=== PATIENT | female | born 1950 | race Caucasian/White ===

== ENCOUNTER 2017-03-10 09:43 | Emergency (ER) | payer MEDICARE, OTHER ==
[~2017-03-10] VITALS: Ht 167.6 cm; Wt 90.7 kg
[~2017-03-10 09:43] MED LIST: AMBEREN; ARIXTRA SUBQ; ASPIR 8181 MG PO; ASPIRIN EC325 M1 PO; CIPROFLOXACIN500 M1 PO; COLACE100 MG PO; FISHOIL; GLUCOPHAGE500 MG PO; HUMALOG100 UNIT/1 SUBQ; HYDROCODONE-AP1 EAC6 PO; LISINOPRIL5 MG PO; MEDROLDOSEPACK PO; MELOXICAM7.5 MG PO; ONDANSETRON HCL4 M2 PO; PERCOCET 5-3251 EACH PO; PREDNISONE 10 M10 MG PO; ROXICODONE5 MG PO; SYNTHROID137 MC1 PO
[2017-03-10] MEDS ORDERED: ELIQUIS5 MG PO (09:58)
[2017-03-10] MEDS ORDERED: CARTIA XT120 M1 PO (09:59)
[2017-03-10] MEDS ORDERED: TURMERIC500 M2 PO (09:59)
[2017-03-10] MEDS ORDERED: VITAMIN D1000 UNI1 PO (10:00)
[2017-03-10 11:50] VITALS: BP 141/77
== END 2017-03-10 11:50 | disposition home or self-care (01) ==
LOC: M.ERS 09:43
DX: S13.4XXA Sprain of ligaments of cervical spine, initial encounter (principal); S50.02XA Contusion of left elbow, initial encounter; S09.90XA Unspecified injury of head, initial encounter; E11.9 Type 2 diabetes mellitus without complications; Z98.890 Other specified postprocedural states; Z86.39 Personal history of other endocrine, nutritional and metabolic disease; Z88.1 Allergy status to other antibiotic agents; Z79.4 Long term (current) use of insulin; W10.8XXA Fall (on) (from) other stairs and steps, initial encounter; Y93.01 Activity, walking, marching and hiking; Y92.89 Other specified places as the place of occurrence of the external cause; Y99.8 Other external cause status

== ENCOUNTER 2017-09-19 23:29 | Observation (INO) | payer MEDICARE, OTHER ==
[~2017-09-19] VITALS: Ht 15.2 cm; Wt 90.7 kg
[~2017-09-19 23:29] MED LIST changes: +CARTIA XT120 M1 PO; +ELIQUIS5 MG PO; +TURMERIC500 M2 PO; +VITAMIN D1000 UNI1 PO
[2017-09-19 23:32] VITALS: BP 166/69
[2017-09-19] MEDS ORDERED: XARELTO20 MG PO (23:43)
[2017-09-20 02:51] LABS: HEMATOCRIT 39.4 % (37.0-47.0); MCH 28.5 pg (26.0-34.0); MCV 86.4 fL (80.0-100.0); MPV 7.7 fl. (7.2-11.1); RBC 4.57 mil/uL (4.20-5.00); RDW-CV 14.2 % (10.5-14.5); WBC 9.3 thou/uL (4.0-11.0)
[2017-09-20 02:57] LABS: ANION GAP 2 mmol/L (7-16); BUN 14 mg/dL (7-18); CALCIUM 9.2 mg/dL (8.5-10.1); CHLORIDE 101 mmol/L (98-107); CO2 31 mmol/L (21-32); CREATININE 0.8 mg/dL (0.6-1.3); GLUCOSE 330 mg/dL (70-99); POTASSIUM 4.6 mmol/L (3.5-5.1); SODIUM 134 mmol/L (136-145)
[2017-09-20 03:05] LABS: TROPONIN-I LEVEL <0.06 ng/mL (<0.06)
[2017-09-20 03:35] VITALS: BP 138/68
[2017-09-20 04:00] VITALS: BP 134/59
--- NOTE | 2017-09-20 05:24 | NUR ---
PT ARRIVED ON ORTHO FROM ER AT 0400 PT ALERT AND ORIENTED X4 VS AND ASSESSMENT STABLE.PT ORIENTED TO ROOM POSITIVE CMS CHECKS TO LLE. PT STATED SHE CHECKED HER BLOOD GLUCOSE AT 027 BG 353 PT STATED SHE BOLUSED HERSELF WITH WITH 5.8 OF UNITS OF HUMALOG. I CHECKED BG WHEN SHE ARRIVED BG 320. PT DENIES ANY COMPLAINTS. WILL CONTINUE PLAN OF CARE.
[2017-09-20 07:30] VITALS: BP 120/66
[2017-09-20] MEDS ORDERED: COLACE100 MG PO (07:59)
[2017-09-20] MEDS ORDERED: XARELTO20 MG PO (07:59)
--- NOTE | 2017-09-20 10:51 | EKG ---
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[facility] : 1950 Requested By: Isreal Low Order Number: [id number] MD: Asael Russell Measurements Intervals [place] Rate: 92 P: 39 MS: 176 QRS: 26 QRSD: 107 T: 35 QT: 369 QTc: 457 Interpretive Statements Sinus rhythm Probable left atrial enlargement septal infarct, age indeterminate Baseline wander in lead(s) V5 Compared to ECG 02/13/2017 22:45:08 no change Electronically Signed On 09-20-2017 10:51:38 CDT by Asael Russell [email or web address] <ELECTRONICALLY SIGNED> By: Asael Russell MD, [facility] 09/20/17 1051 0329 0329 Asael Russell MD, [facility] /EPI
--- NOTE | 2017-09-20 15:22 | NUR ---
RECEIVED CONSULT FOR POSSIBLE REHAB ADMISSION. CONSULT ACKNOWLDEGED BY COMPLIANCE LEAD AND DR. ABBASI. PATIENT ADMITTED AFTER FALL DOWN STAIRS HITTING HER HEAD AND SUSTAINING A LEFT TIBIAL PLATEAU FX. PATIENT WAS EVALUATED BY PT/OT AND FOUND TO HAVE REHAB NEEDS. SPOKE WITH PATIENT AND SPOUSE WHO ARE AGREEABLE TO ACUTE REHAB AND ACKNOWLEGE UNDERSTANDING OF QUALIFICATIONS AND REQUIREMENTS. NOTIFIED NURSE AND ALVIN FOX OF ACCEPTANCE TO REHAB. WILL PLAN TO ADMIT PATIENT TO ACUTE REHAB TODAY. THANK YOU FOR THIS CONSULT.
--- NOTE | 2017-09-20 15:52 | NUR ---
SPOKE WITH PT. SHE WAS ALERT AND ORIENTED. SHE WILL BE GOING TO OUR INPT.REHAB TODAY. SHE IS VERY HAPPY AND STATED MORE AT EASE SINCE SHE KNOWS SHE CAN GO UP TO REHAB. SHE STATED SHE LIVES WITH HER . HE IS BRINGING HER UP SOME THINGS TO THE HOSPITAL SHORTLY. SHE HAD A KNEE REPLACEMENT SEVERAL YEARS AGO. HAS A WALKER AT HOME. SHE WAS TOTALLY INDEPENDENT PRIOR TO HER FALL. DISCUSSED BRIEFLY,REHAB UNIT ROUTINE.
[2017-09-20] MEDS ORDERED: NORCO 5-325 TA1 EACH PO (16:21)
[2017-09-20 16:49] VITALS: BP 120/66
--- NOTE | 2017-09-20 18:19 | NUR ---
PATIENT LEFT UNIT AT 1730. ALERT AND ORIENTED X4. UP WITH 1-2 WITH WALKER AND GAIT BELT. PAIN BEING MANAGED WITH PO PAIN MEDICATION. NAUSEA BEING MANAGED WITH IV PAIN MEDICATION. ALL PERSONAL ITEMS LEFT WITH PATIENT. DISCHARGE ORDERS SENT TO REHAB. VSS ON ROOM AIR. HOURLY ROUNDS HAVE BEEN MAINTAINED THROUGHOUT SHIFT. TRANSFERRED TO ROOM 323. REPORT GIVEN TO CHRISTINA GOMEZ.
[2017-09-20 18:40] VITALS: BP 120/66
--- NOTE | 2017-09-20 20:06 | NUR ---
KEV GOMEZ HAS REVIEWED AND AGREES WITH STUDENT NURSES CHARTING.
--- NOTE | 2017-10-03 15:07 | NUR ---
PT ACCOUNT MADE OBSERVATION. G-CODE THIS DATE: 09/20/17 CURRENT G8987 SELF CARE- CM 80% GOAL G8988 SELF CARE- CI 1-19%
== END 2017-09-20 17:30 ==
LOC: M.ERS 23:29 → M.ORTHSURG 09-20 02:34 → M.TBA-ER 09-20 02:34 → M.ORTHSURG 09-20 02:34
PROVIDERS: Emergency Medicine Emergency Medical Services; ADMIT Internal Medicine
DX: S82.142A Displaced bicondylar fracture of left tibia, initial encounter for closed fracture (principal); R53.81 Other malaise; E10.8 Type 1 diabetes mellitus with unspecified complications; I48.91 Unspecified atrial fibrillation; E05.00 Thyrotoxicosis with diffuse goiter without thyrotoxic crisis or storm; W10.8XXA Fall (on) (from) other stairs and steps, initial encounter; Y93.89 Activity, other specified; Y92.89 Other specified places as the place of occurrence of the external cause; Y99.8 Other external cause status; Z98.890 Other specified postprocedural states

== ENCOUNTER 2017-09-20 16:07 | Inpatient (IN) | payer MEDICARE, OTHER ==
[~2017-09-20] VITALS: Ht 167.6 cm; Wt 93.4 kg
--- NOTE | ~2017-09-20 | H ---
[address] [address] HISTORY AND PHYSICAL Name: ALYSON MCINTYRE Room: [address] IN M.R.#: [id number] Admission: 09/20/17 Attend Phys: Elva Owens DO Discharge: 10/03/17 Date of : 48 Report #: [id number] THIS REPORT FOR: //name// CC: Jaime Owens DATE OF SERVICE: 09/20/2017 ADDENDUM ASSESSMENT: 1. Acute traumatic left tibial plateau fracture. 2. Debility with alterations in activities of daily living. 3. Intractable pain. 4. Diabetes type 1, on insulin. 5. Atrial fibrillation, on Xarelto. 6. Nausea. PLAN: 1. Admission to inpatient rehabilitation. 2. PT, OT, speech, language, case management, nursing and HIMS to make evaluations and recommendations. 3. Medication reconciliation was completed. 4. Plan of care is pending and we will team her weekly. 5. ADA diet and laboratories on day after admission. By: [id number] Owens DO /nt
[~2017-09-20 16:07] MED LIST changes: +XARELTO20 MG PO
[2017-09-20] MEDS ORDERED: NORCO 5-325 TA1 EACH PO (16:21)
--- NOTE | 2017-09-20 18:55 | NUR ---
TRANSFERRED FROM [facility] THIS EVENING AFTER SUPPER, A/O, DISCOMFORT MINIMALLY MANAGED WITH ORAL MEDICATION. ORIENTED TO ROOM, CARE PLAN REVIEWED WITH PATIENT AND RE: DISCHARGE GOALS AND DISCHARGE PLAN, BOTH COMMUNICATE UNDERSTANDING, DENY QUESTIONS AT THIS TIME, PERCOCET 5/325 GIVEN @ 1830 FOR PAIN CONTROL, CALL LIGHT NI BRYAN.
[2017-09-20 19:35] VITALS: BP 155/82
--- NOTE | 2017-09-20 21:40 | NUR ---
REHAB ADMISSION TOOL ADMISSION COMPLETED. PATIENT STATES NO RELIEF OBTAINED FROM PERCOCET GIVEN ON DAY SHIFT FOR COMPLAINT OF LEFT KNEE PAIN. GAVE TWO VICODINS AT 2105 FOR COMPLAINT OF LEFT KNEE PAIN RATED "10" WITH MINIMAL RELIEF. PATIENT STATES PAIN DECREASED TO A "9". LEFT KNEE BRACE INTACT. PLACED PILLOW UNDER LEFT LEG BUT PATIENT REMOVED THE PILLOW AFTER ABOUT 20 MINUTES STATING IT WAS TOO UNCOMFORTABLE. PATIENT HAS AN INSULIN PUMP THAT CALCULATES HOW MUCH INSULIN IS NEEDED. TONIGHT'S ACCUCHECK WAS 203 AND PATIENT'S INSULIN PUMP DELIVERED 1.9 UNITS OF HUMALOG INSULIN. PATIENT HAD A FEMALE VISITOR AT SHIFT CHANGE. PATIENT STATES THEY HAVE BEEN FRIENDS FOR 40 YEARS. TOOK MEDICATIONS WHOLE ONE AT A TIME WITH WATER.
[2017-09-21 04:28] LABS: HEMOGLOBIN 12.6 gm/dL (12.0-15.0); MCHC 32.2 g/dL (28.0-37.0); MCV 87.1 fL (80.0-100.0); MPV 8.3 fl. (7.2-11.1); RBC 4.48 mil/uL (4.20-5.00); RDW-CV 14.4 % (10.5-14.5)
[2017-09-21 04:45] LABS: CALCIUM 9.3 mg/dL (8.5-10.1); CREATININE 0.7 mg/dL (0.6-1.3); POTASSIUM 4.3 mmol/L (3.5-5.1)
--- NOTE | 2017-09-21 05:06 | NUR ---
PAIN MEDS GIVEN AT 0330 FOR C/O LEFT KNEE PAIN RATED "8" WITH RELIEF. HOURLY ROUNDING IN PROGRESS.
[2017-09-21 08:00] VITALS: BP 138/69
--- NOTE | 2017-09-21 18:36 | NUR ---
AM ASSESSMENT AND VITAL SIGNS COMPLETED DOCUMENTED. HINGED BRACE HAS BEEN IN PLACE TO LEFT LEG ALL DAY, NON WEIGHT BEARING STATUS CONTINUES. PT WAS VERY NAUSEATED THIS AM AND THERAPY WAS DELAYED UNTIL MID MORNING. PT HAS DECLINED PAIN MEDICATION TODAY. PT IS ABLE TO STAND PIVOT FOR TRANSFERS. HOURLY ROUNDING AND FALL PRECAUTIONS IN PLACE.
--- NOTE | 2017-09-21 19:15 | NUR ---
PT HAS AN INSULIN PUMP AND SHE HAS BEEN MANAGING HER BLOOD GLUCOSE HERSELF
[2017-09-21 19:30] VITALS: BP 119/71
[2017-09-21 19:50] VITALS: BP 125/61
--- NOTE | 2017-09-21 19:50 | NUR ---
RESTING QUIETLY IN BED. DENIES DISCOMFORT. TOOK MEDS WHOLE WITH WATER. LEFT LEG BRACE IN PLACE.
--- NOTE | 2017-09-22 06:06 | NUR ---
RESTED SOUNDLY ALL NIGHT. NO COMPLAINTS VOICED. HOURLY ROUNDING IN PROGRESS.
[2017-09-22 08:00] VITALS: BP 135/55
--- NOTE | 2017-09-22 18:15 | NUR ---
AM ASSESSMENT AND VITAL SIGNS COMPLETED DOCUMENTED. PT CLEANED UP AT THE SINK THIS AM, ABLE TO DO HER OWN GROOMING WITH SET UP. LEFT LEG BRACE REMAINS IN PLACE, NO C/O PAIN OR NAUSEA THIS SHIFT. PT EATS MEALS IN THE DINING ROOM AND INTERACTS WELL WITH THE OTHER PATIENTS. PT CONTINUES TO MANAGE HER BLOOD GLUCOSE SHE WOULD AT HOME. FALL PRECAUTIONS AND HOURLY ROUNDING OBSERVED.
[2017-09-22 21:26] VITALS: BP 144/73
--- NOTE | 2017-09-23 01:17 | NUR ---
ASSUMED CARE @ 1914-09/22-SATURDAY.SITS IN RECLINER W/ LE'S UP.BRACE IN PLACE LEFT LE.READING BOOK.BRP PER W/C W/PIVOT TRANSFER.NWB LEFT LE OBSERVED DURING TRANSFERS.FEARFUL DURING TRANSFERS.MAX ASSIST W/ CLOTHING ADJUSTMENTS.HOB UP. WANTS ONLY LEFT LE UP ON A PILLOW.EDEMA-+1 PITTING LEFT ANKLE & LEFT FOOT. WANTS ONLY SIDERAILS X2 UP.BED ALARM PUT ON @ 2119.PER PATIENT-TURNS SELF @ NIGHT & IF NEEDED ASSIST-WILL CALL.ON HOURLY ROUNDS.
--- NOTE | 2017-09-23 05:27 | NUR ---
SLEPT LATE & SLEEPING SINCE 2299.BRP PER W/C X1 BEFORE HS @ 2114.THEN,USED BSC W/ ASSIST X2.TOOK ONE PACKAGE LUCINDA CRACKERS HS SNACKS.HAS INSULIN PUMP. REMAINED IN RECLINER W/ LE'S UP @ 0535-SLEEPING.
[2017-09-23 08:00] VITALS: BP 135/69
--- NOTE | 2017-09-23 13:13 | NUR ---
Nutrition: Pt admitted to Rehab s/p fall, Lt tibial FX. PMHx: IDDM, whiplash injuries, afib. LLE pitting edema. 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 RX: insulin, xarelto. +BM. Wt: 200#. Eating 75-100% of CHO count diet. BG 161-184. No acute nutrition concerns at this time. Will follow weekly.
--- NOTE | 2017-09-23 17:31 | NUR ---
SW met with pt to complete initial assessment, introduce self, and SW role on rehab unit. Pt alert, oriented, pleasant. Pt lives at home with her and was independent prior to her fall. Pt has a RW and is in the process of getting a BSC. Pt has 3 steps to enter her home and her goal is to master at least 3 steps safely prior to dc. SW to continue to follow to assist with safe dc planning.
--- NOTE | 2017-09-23 18:33 | NUR ---
PT HAS PARTICIPATED WITH THERAPIES AND CALLS FOR ASSIST NEEDED.PT REMAINS NWB TO LT LEG WITH IMMOBILIZER ON. PT CONTINENT OF B+B AND CALLS FOR ASSIST TO BSC.PLAIN TYLENOL GIVEN WITH GOOD EFFECT THIS EVENING.PT EATS MEALS IN DINNING ROOM. PT CONTINUES TO PROGRESS TOWARDS GOALS AND HOURLY ROUNDING CONTINUES.
[2017-09-23 19:50] VITALS: BP 123/64
--- NOTE | 2017-09-24 02:12 | NUR ---
ASSUMED CARE @ 1929-09/23-SATURDAY.SITS IN RECLINER W/ LE'S UP.BRACE IN PLACE LEFT LE.VISITING W/ A FRIEND @ THIS TIME.ASSISTED TO BED BY TAR HEATER @ 2119.HOB UP.WANTS ONLY LEFT LE UP ON A PILLOW.BED ALARM PUT ON @ 2119.HAS INSULIN PUMP. EDEMA-+1 PITTING LEFT ANKLE & LEFT FOOT.NWB LEFT LE DURING ALL TRANSFERS.ON HOURLY ROUNDS.TAR HEATER DOING ODD HOUR ROUNDS.
--- NOTE | 2017-09-24 05:45 | NUR ---
SLEEPING SINCE 2199.TURNS SELF @ NIGHT.SEE POSITION CHANGE CHARTING.TOOK ALL PEACHES HS SNACK.BRP PER W/C X1 BEFORE HS @ 194.USED BSC X3.URINE ACCIDENT W/ DRIBBLING X1.WANTS TO SIT IN RECLINER @ 0525 W/LE'S UP & ASSISTED BY BUN PANNER.
[2017-09-24 08:22] VITALS: BP 144/80
--- NOTE | 2017-09-24 12:47 | NUR ---
SW called and spoke with Gema's Kyrie in preparation for team conference tomorrow. Pt did not have any specific questions just is hopeful pt will be able to master stairs in order to return home safely. SW to continue to follow to assist with safe dc planning.
--- NOTE | 2017-09-24 16:52 | NUR ---
PT HAS PARTICIPATED WITH THERAPIES AND CONTINUES TO WEAR IMMOBILIZER TO LT LEG AND REMAINS NWD.PT TRANSFERRS WITH WALKER,GAITBELT AND MIN ASSIST OF 1. PT CAN BE MOBILE IN W/C ON UNIT. PT TOLERATES MEALS AND EATS IN DINNINGROOM. PT CONTINENT OF B+B AND CALLS FOR ASSIST TO BSC. PT REMAINS ALERT AND ORIENTATED AND PROGRESSES TOWARDS GOALS. HOURLY ROUNDING CONTINUES.
[2017-09-24 20:30] VITALS: BP 125/65
--- NOTE | 2017-09-25 02:06 | NUR ---
ASSUMED CARE @ 1929-/-.SITS IN RECLINER W/ LE'S UP.BRACE IN PLACE LEFT LE.ACCUCHECK DONE BY STAVE BLOCK ROLLER @ .PATIENT ONLY TOOK 60 ML ORANGE JUICE & ONE SMALL CONTAINER PEANUT BUTTER HS SNACKS @ 2029.LATER,PATIENT DID OWN ACCUCHECK @ .HAS INSULIN PUMP.NWB LEFT LE OBSERVED DURING ALL TRANSFERS & TOILETING.HOB UP IN BED.WANTS ONLY LEFT LE UP ON A PILLOW.BED ALARM PUT ON @ 2134.EDEMA-+1 PITTING LEFT ANKLE & LEFT FOOT.TURNS SELF @ NIGHT.SEE POSITION CHANGE CHARTING.ON HOURLY ROUNDS.STAVE BLOCK ROLLER DOING ODD HOUR ROUNDS.
--- NOTE | 2017-09-25 05:22 | NUR ---
SLEEPING SINCE -SAT.BRP X1 W/ DICTAPHONE MECHANIC ASSISTING @ 2119.AMBULATED TO BATHROOM W/ GB & WALKER BUT USED W/C TO GO BACK TO BED.USED BSC X1 ONLY.TOOK ONLY 60 ML ORANGE JUICE & ONE SMALL PACKET PEANUT BUTTER HS SNACKS.
[2017-09-25 08:00] VITALS: BP 137/83
--- NOTE | 2017-09-25 15:00 | NUR ---
KELLY and Dr Owens met with pt to review team conference summary. Plan for pt to continue therapies on rehab unit for another week with team to reteam on next Saturday and then pt to dc home on next 10/02. Pt in agreement with plan. SW to continue to follow to assist with safe dc planning.
--- NOTE | 2017-09-25 17:45 | NUR ---
ASSUMED CARE AT 0730 PATIENT ALERT/ORIENTED, TYLENOL GIVEN FOR PAIN X1 THIS SHIFT WITH GOOD RESULTS, UP WITH ASSIST OF ONE NWB TO LLE. SCOPOLOMINE D/DC DUE TO DRY MOUTH AT PATIENT REQUEST, HAS HAD NO C/O NAUSEA THIS SHIFT. PARTICIPATED IN ALL THERAPIES TODAY, TO DINING ROOM FOR MEALS, HOURLY ROUNDING COMPLETED. BED/CHAIR ALARMS IN PLACE CALL LIGHT IN REACH
[2017-09-25 20:26] VITALS: BP 145/80
--- NOTE | 2017-09-26 05:08 | NUR ---
ASSUMED PT CARE AT 1930. PT SITTING UP IN RECLINER WATCHING TELEVISION. PT IS NWB TO LLE, IMMOBILIZER TO LLE IN PLACE. PT UP TO BATHROOM TO VOID WITH GAIT BELT AND WALKER. PT HAS INSULIN PUMP AND PERFORMS OWN ACCUCHECKS AND INSULIN DOSING. TYLENOL AT HS FOR LEFT LEG PAIN. PT SLEPT WELL OVERNIGHT. CALL LIGHT AND FREQUENTLY USED ITEMS WITHIN REACH. HOURLY ROUNDING IN PROGRESS, WILL CONTINUE TO MONITOR.
[2017-09-26 07:54] VITALS: BP 141/71
--- NOTE | 2017-09-26 17:38 | NUR ---
ASSUMED CARE AT 0730 PATIENT ALERT/ORIENTED, TYLENOL GIVEN X2 FOR LEFT LEG PAIN. PARTICIPATED IN ALL THERAPIES TODAY, TO DINING ROOM FOR MEALS, BED/CHAIR ALARMS IN PLACE, CALL LIGHT IN REACH, HOURLY ROUNDING COMPLETED. PATIENT HAS INSULIN PUMP AND ADMINISTERS INSULIN NEEDED. IMMOBILIZER IN PLACE TO E.
[2017-09-26 20:10] VITALS: BP 114/68
--- NOTE | 2017-09-27 05:20 | NUR ---
ASSUMED PT CARE AT 1930. NURSING ASSESSMENT COMPLETED AT START OF SHIFT. PRN PAIN MEDICATION ADNISTERED X2 THIS SHIFT. SEE EMAR FOR DOCUMENTATION. MEDICATION EFFECTIVE. HOURLY ROUNDING COMPLETED, FALL PRECAUTIONS IN PLACE. CALL LIGHT WITHIN REACH.
[2017-09-27 08:01] VITALS: BP 139/77
--- NOTE | 2017-09-27 18:17 | NUR ---
PT CALLS FOR ASSIST TO BATHROOM AND EATS MEALS IN DINNINGROOM. PT REMAINS CONTINENT OF B+B. PT IS ALERT AND ORIENTATED. PT RESTS IN RECLINER WITH LEGS ELEVATED AND PROGRESSES WITH GOALS.
[2017-09-27 20:10] VITALS: BP 149/77
--- NOTE | 2017-09-28 05:07 | NUR ---
ASSUMED PT CARE AT 1930. PT ALERT AND ORIENTED X4, POLITE AND COOPERATIVE WITH CARES. PT SITTING UP IN RECLINER WITH LEGS ELEVATED. IMMOBILIZER IN PLACE TO LLE. PT C/O PAIN, TYLENOL GIVEN WITH HS MEDS FOR LEFT LEG PAIN. PT SLEPT WELL OVERNIGHT. PT HAS INSULIN PUMP, DOES OWN GLUCOSE CHECKS AND DOSING. UP TO BR TO VOID WITH SBA, GAIT BELT AND WALKER. BED ALARM ON FOR SAFETY. CALL LIGHT WITHIN REACH. HOURLY ROUNDING IN PROGRESS, WILL CONTINUE TO MONITOR.
[2017-09-28 08:12] VITALS: BP 137/75
--- NOTE | 2017-09-28 16:55 | NUR ---
ASSUMED CARE AT 0730 PATIENT ALERT/ORIENTED, NO COMPLAINTS OF PAIN THIS SHIFT, UP WITH ASSIST OF ONE AND WALKER, NWB TO LLE. PARTICIPATED IN ALL THERAPIES TODAY, TO DINING ROOM FOR MEALS, BED/CHAIR ALARMS IN PLACE, CALL LIGHT IN REACH, HOURLY ROUNDING COMPLETED.
[2017-09-28 20:13] VITALS: BP 138/85
--- NOTE | 2017-09-28 20:15 | NUR ---
SITTING UP IN WHEELCHAIR VISITING WITH . JUST FINISHED PLAYING [employer] IN THE DINING ROOM. TRANSFERRED FROM WHEELCHAIR TO BED WITH CGA, GAITBELT, WALKER, NON WEIGHT BEARING TO RIGHT LOWER EXTREMITY. HAS LEFT LEG IMMOBILIZER ON. LEFT PEDAL EDEMA OF 2+ NOTED. PILLOW PLACED UNDER LEFT LEG. TYLENOL GIVEN PER REQUEST FOR COMPLAINT OF LEFT LEG PAIN RATED "7". TOOK MEDICATIONS WHOLE WITH WATER.
--- NOTE | 2017-09-29 05:30 | NUR ---
UP X ONE DURING THE NIGHT TO THE BEDSIDE COMMODE TO VOID. NO FURTHER COMPLAINT OF PAIN. HOURLY ROUNDING IN PROGRESS.
[2017-09-29 08:19] VITALS: BP 138/78
--- NOTE | 2017-09-29 16:56 | NUR ---
ASSUMED CARE AT 0730 PATIENT ALERT/ORIENTED X4 UP WITH STANDBY ASSIST WALKER AND GAIT BELT, NO COMPLAINTS OF PAIN THIS SHIFT, NWB TO LLE WITH IMMOBILIZER IN PLACE, CALL LIGHT IN REACH, BED/CHAIR ALARMS IN PLACE, HOURLY ROUNDING COMPLETED. TO DINING ROOM FOR MEALS.
[2017-09-29 19:30] VITALS: BP 150/74
--- NOTE | 2017-09-29 20:15 | NUR ---
SITTING UP IN RECLINER. PRN TYLENOL GIVEN PER REQUEST FOR COMPLAINT OF MUSCLE SORENESS IN HER ARMS FROM EXERCISES IN THERAPY. TOOK MEDICATIONS WHOLE WITH WATER. LEFT IMMOBILIZER INTACT.
--- NOTE | 2017-09-30 04:53 | NUR ---
UP X ONE DURING THE NIGHT TO THE BEDSIDE COMMODE TO VOID. TRANSFERS WTIH SBA, GAITBELT, NON WEIGHT BEARING TO LEFT LOWER EXTREMITY. NO FURTHER COMPLAINT OF PAIN. HOURLY ROUNDING IN PROGRESS.
[2017-09-30 07:35] VITALS: BP 133/71
--- NOTE | 2017-09-30 15:51 | NUR ---
PT HAS PARTICIPATED WITH THERAPIES AND CALLS FOR ASSIST WITH TRANSFERRS. PT TRANSFERRS WITH MIN ASSIST OF 1,GAITBELT AND WALKER WITH LT LEG IMMOBILIZER ON.PT CALLS FOR ASSIST TO BATHROOM AND VOIDS WELL. PRN FOR PAIN GIVEN X2 TODAY WITH GOOD EFFECT. PT FEELING A LITTLE DOWN TODAY AND HOPEING TO GO HOME SOON. PT CONTINUES TO PROGRESS TOWARDS GOALS AND HOURLY ROUNDING CONTINUES.
[2017-09-30 19:30] VITALS: BP 149/73
--- NOTE | 2017-09-30 21:05 | NUR ---
SITTING UP IN BED WATCHING TV. PRN TYLENOL GIVEN FOR COMPLAINT OF SORENESS IN ARMS FROM THERAPY. TOOK MEDICATIONS WHOLE WITH WATER.
[2017-10-01 03:47] LABS: HEMATOCRIT 39.2 % (37.0-47.0); HEMOGLOBIN 12.8 gm/dL (12.0-15.0); MCH 27.9 pg (26.0-34.0); MCHC 32.5 g/dL (28.0-37.0); MCV 85.9 fL (80.0-100.0); MPV 8.1 fl. (7.2-11.1); RBC 4.57 mil/uL (4.20-5.00); WBC 6.5 thou/uL (4.0-11.0)
[2017-10-01 03:59] LABS: CALCIUM 9.4 mg/dL (8.5-10.1); CREATININE 0.6 mg/dL (0.6-1.3); MAGNESIUM 1.8 mg/dL (1.8-2.4); POTASSIUM 3.9 mmol/L (3.5-5.1)
--- NOTE | 2017-10-01 06:06 | NUR ---
UP X 3 DURING THE NIGHT TO THE BEDSIDE COMMODE TO VOID. NO FURTHER COMPLAINT OF PAIN. TRANSFERS WITH SBA, GAITBELT, WALKER, NON WEIGHT BEARING TO LEFT LOWER EXTREMITY. HOURLY ROUNDING IN PROGRESS.
[2017-10-01 08:22] VITALS: BP 183/77
--- NOTE | 2017-10-01 13:06 | NUR ---
SW spoke with pt about dc planning and whether or not pt had a RW at home already. Pt said that she actually did have a RW and did not need a walker ordered after all as she had mentioned to the OT that the one she had might not have had wheels and then she confirmed that it did have wheels. Pt said that her plans to bring up the RW today to have it set to the height that pt has been using on RW in hospital. SW discussed HH services and SW discussed team conference tomorrow with pt possibility to be able to dc . Pt is hopeful that will be the confirmed plan. Pt said she has borrowed a ramp and a wc if needed to get in to the home as she was nervous about climbing the steps to enter the home. SW called pt in preparation for team conference tomorrow and he answered but was unable to talk in depth at the moment and said he would call SW if needed. SW to continue to follow to assist with safe dc planning.
--- NOTE | 2017-10-01 16:33 | NUR ---
PT HAS PARTICIPATED WITH THERAPIES AND CALLS FOR ASSIST NEEDED. PRN FOR PAIN GIVEN WITH GOOD EFFECT. PTCALLS FOR ASSIST FOR TRANSFERRS AND MAINTAINS NWB STATUS TO LT LEG WITH IMMOBILIZER ON. PT REMAINS ALERT AND ORIENTATED AND PROGRESSES TOWARDS GOALS. HOURLY ROUNDING CONTINUES.
[2017-10-01 19:30] VITALS: BP 152/83
--- NOTE | 2017-10-02 01:44 | NUR ---
ASSUMED CARE @ -SATURDAY.SITS IN RECLINER W/ LE'S UP.BRACE IN PLACE LEFT LE.ON HER PHONE @ 1931.BRP W/ ASSIST BY PAPI @ 2144.NWB LEFT LE OBSERVED. LEFT LE UP ON A PILLOW IN BED.HOB UP.BED ALARM PUT ON @ 2199.SEE PAIN MANAGEMENT @ 2203.WANTS ALL LIGHTS OFF & DOOR CLOSED @ NIGHT.ON HOURLY ROUNDS. ADJUSTER ELECTRICAL CONTACTS DOING ODD HOUR ROUNDS.EDEMA-TRACE PITTING LEFT FOOT & LEFT ANKLE.
--- NOTE | 2017-10-02 05:18 | NUR ---
SLEEPING SINCE 0000-10/02-SAT.BRP W/ ASSIST X1 BEFORE HS @ 2145.USED BSC X1. SEE POSITION CHANGE CHARTING.REFUSED HS SNACK.CLAIMS FOR DISCHARGE 10/03-SATURDAY.
[2017-10-02 07:30] VITALS: BP 177/77
--- NOTE | 2017-10-02 16:01 | NUR ---
Plan for pt to dc home tomorrow, , 10/03 with and with HH services to follow. Pt has RW, ramp, wc and support at home. Pt preference for HH through [facility]. SW faxed referral and orders to [facility]. No other needs or concerns expressed. Pt will be available to provide pt ride home.
[2017-10-02] MEDS ORDERED: NEURONTIN 300300 M1 PO (16:12)
[2017-10-02] MEDS ORDERED: VOLTAREN GEL 1100 G2 TOP (16:13)
[2017-10-02 16:16] VITALS: BP 177/77
--- NOTE | 2017-10-02 17:49 | NUR ---
ASSUMED CARE AT 0730 PATIENT ALERT/ORIENTED, MILD PAIN TO BILATERAL ARMS, TYLENOL AND VOLTAREN GEL WITH GOOD RELIEF, UP WITH ASSIST OF ONE AND WALKER/GAIT BELT, PATIENT MOD I IN ROOM THIS AFTERNOON WITH D/C TO HOME TOMORROW. PARTICIPATED IN ALL THERAPIES TODAY, TO DINING ROOM FOR MEALS, HOURLY ROUNDING COMPLETED, BED/CHAIR ALARMS IN PLACE, CALL LIGHT IN REACH.
[2017-10-02 20:14] VITALS: BP 139/79
--- NOTE | 2017-10-02 21:15 | NUR ---
SITTING UP IN RECLINER WITH LEGS ELEVATED. IN GOOD SPIRITS. EXCITED ABOUT GOING HOME TOMORROW. PRN TYLENOL GIVEN PER REQUEST FOR COMPLAINT OF BILATERAL SORENESS IN UPPER ARMS. PATIENT STATES GETTING RELIEF FROM THE VOLTAREN CREAM WELL. PATIENT IS MODIFIED INDEPENDENT IN ROOM WITH A WALKER. WILL BE USING THE BEDSIDE COMMODE TONIGHT AND WILL CALL THE STAFF WHEN IT NEEDS TO BE EMPTIED. LEFT LEG BRACE IN PLACE. TOOK MEDICATIONS WHOLE WITH WATER.
--- NOTE | 2017-10-03 06:14 | NUR ---
UP IN RECLINER WITH LEGS ELEVATED SINCE ABOUT 0430 READING. PATIENT STATES COULDN'T GET COMFORTABLE. DECLINED OFFER OF PAIN MEDICATION. PT TO BE DISCHARGED TO HOME TODAY. HOURLY ROUNDING IN PROGRESS.
[2017-10-03 08:25] VITALS: BP 152/71
[2017-10-03 10:51] VITALS: BP 152/71
[2017-10-03] MEDS ORDERED: VOLTAREN GEL 1100 G2 TOP (11:11)
[2017-10-03] MEDS ORDERED: NORCO 5-325 TA1 EACH PO (11:14)
--- NOTE | 2017-10-03 13:45 | NUR ---
THIS IS A RE-ENTRY NOTE DUE TO THE ORIGINAL NOTE NOT SAVING ON THE DATE OF: 09/27/17, FROM 1330 TO 1400. DURING THIS DATE, PT ADDRESSED FUNCTIONAL W/C MOB DEMONSTRATING UT, FUNCTIONAL STANDING BALANCE WHILE MAINTAINING NWB WITH LEFT LE FOR SEVERAL MINUTES. THIS IS NEEDED TO INCREASE FUNCTIONAL STANDING BALANCE AND TOLERANCE IN ORDER TO BE MORE INDEP WITH BADLS, TRANSPORTING ITEMS RW LEVEL. PT ADDRESSED UB EXERCISES IN ORDER TO PT COMPLETE FUNCTIONAL TRANSFERS AND SUSTAIN STANDING FOR LONGER PERIODS TIME
--- NOTE | 2017-10-03 14:59 | NUR ---
pt ready to discharge to home with .discussed discharge instructions. pt continues to wear immobilizer to lt leg and remains nwb. pt remains alert and orientated and continent of b+b. pt to car per w/c with staff member with all belongings.
--- NOTE | 2017-11-06 14:10 | D ---
[address] [address] DISCHARGE SUMMARY Name: ALYSON MCINTYRE Walter Room: [address] IN .R.#: [id number] Admission: 09/20/17 Attend Phys: Elva Owens DO Discharge: 10/03/17 Date of : 48 Report #: [id number] THIS REPORT FOR: //name// CC: Jaime Owens DATE OF SERVICE: 10/03/2017 DISCHARGE DIAGNOSIS: Status post mechanical fall. She will follow with her primary care physician within one week. Notifications for physician were given. Fall precautions. DIET: Regular. MEDICATIONS: Reviewed and reconciled by myself and are available in the MAR. DISCHARGE PHYSICAL EXAMINATION: GENERAL: Alert, oriented, in no apparent distress. VITAL SIGNS: Reviewed and are stable. HEENT: Atraumatic, normocephalic. Pupils are equal, round, reactive. ABDOMEN: Soft, nontender, nondistended. NEUROLOGIC: Cranial nerves 2 through 12 are grossly intact with no focal neuro deficits. <ELECTRONICALLY SIGNED> By: Elva Owens DO 11/06/17 1410 1234 [id number] Owens DO /nt
--- NOTE | 2018-01-08 13:56 | H ---
[address] [address] HISTORY AND PHYSICAL Name: ALYSON MCINTYRE Room: [address] IN ..#: [id number] Admission: 09/20/17 Attend Phys: Elva Owens, DO Discharge: 10/03/17 Date of : 48 Report #: [id number] THIS REPORT FOR: //name// CC: Jaime Owens DATE OF SERVICE: 09/20/2017 HISTORY OF PRESENT ILLNESS: This is a 67-year-old female admitted to inpatient rehabilitation to facilitate safe discharge home, status post mechanical fall at her own home. No trauma, no headache, no loss of consciousness. Previous level of function was independent with activities of daily living. Current level of function is minimum to moderate assistance depending on therapy, activity and time of day. No changes since preadmission screening. She has multiple medical comorbidities that require daily medical care. PAST MEDICAL HISTORY: Angina, chest pain, contusion, diabetic ketoacidosis, head injury, hyperglycemia, left knee pain, palpitations, right hip pain, tibial plateau fracture on the left with whiplash injuries. ALLERGIES: ANCEF, BACTRIM/TRIMETHOPRIM. REVIEW OF SYSTEMS: Noted and are stable. PHYSICAL EXAMINATION: GENERAL: Alert, oriented, in no apparent distress. VITAL SIGNS: Reviewed and are stable. HEENT: Head is atraumatic, normocephalic. Pupils equal, round and reactive. ABDOMEN: Soft, nontender, nondistended. NEUROLOGIC: Cranial nerves 2-12 grossly intact. No focal neuro deficit, 5/5 strength in bilateral upper and lower extremities. SKIN: Warm and dry. No rashes or lesions noted. ADDENDUM ASSESSMENT: 1. Acute traumatic left tibial plateau fracture. 2. Debility with alterations in activities of daily living. 3. Intractable pain. 4. Diabetes type 1, on insulin. 5. Atrial fibrillation, on Xarelto. 6. Nausea. PLAN: 1. Admission to inpatient rehabilitation. 2. PT, OT, speech, language, case management, nursing [place] [address] HISTORY AND PHYSICAL Name: ALYSON MCINTYRE Room: [address] IN [facility].#: [id number] Admission: 09/20/17 Attend Phys: Elva Owens DO Discharge: 10/03/17 Date of : 48 Report #: [id number] evaluations and recommendations. 3. Medication reconciliation was completed. 4. Plan of care is pending and we will team her weekly. 5. ADA diet and laboratories on day after admission. <ELECTRONICALLY SIGNED> By: Elva Owens DO 01/08/18 1356 [id number] Owens DO /nt
== END 2017-10-03 15:02 | disposition home health service (06) | DRG 563 ==
LOC: M.REH 16:07
PROVIDERS: Internal Medicine; ADMIT Physical Medicine & Rehabilitation
DX: S82.142A Displaced bicondylar fracture of left tibia, initial encounter for closed fracture (principal); I48.91 Unspecified atrial fibrillation; E10.9 Type 1 diabetes mellitus without complications; R53.81 Other malaise; R11.0 Nausea; W10.8XXA Fall (on) (from) other stairs and steps, initial encounter; Y93.01 Activity, walking, marching and hiking; S46.819A Strain of other muscles, fascia and tendons at shoulder and upper arm level, unspecified arm, initial encounter; Z88.2 Allergy status to sulfonamides; Z88.8 Allergy status to other drugs, medicaments and biological substances; Z88.1 Allergy status to other antibiotic agents; Z90.49 Acquired absence of other specified parts of digestive tract; Z79.4 Long term (current) use of insulin; Y99.8 Other external cause status; Y92.098 Other place in other non-institutional residence as the place of occurrence of the external cause; Z79.899 Other long term (current) drug therapy; Z79.01 Long term (current) use of anticoagulants

== ENCOUNTER → 2017-11-26 | Outpatient (CLI) | payer MEDICARE, OTHER ==
[~2017-11-26] MED LIST changes: +NEURONTIN 300300 M1 PO; +NORCO 5-325 TA1 EACH PO; +VOLTAREN GEL 1100 G2 TOP
[2017-11-26 08:16] LABS: ALBUMIN 3.6 g/dL (3.4-5.0); ALKALINE PHOSPHATASE 113 U/L (46-116); ANION GAP 4 mmol/L (7-16); BUN 14 mg/dL (7-18); CALCIUM 9.2 mg/dL (8.5-10.1); CHLORIDE 104 mmol/L (98-107); CHOLESTEROL 176 mg/dL (<200); CO2 30 mmol/L (21-32); CREATININE 0.6 mg/dL (0.6-1.3); GLUCOSE 110 mg/dL (70-99); HDL CHOLESTEROL 78 mg/dL (>40); LDL CHOLESTEROL 90 mg/dL (<100); POTASSIUM 3.8 mmol/L (3.5-5.1); SGOT 16 U/L (15-37); SGPT 21 U/L (30-65); SODIUM 138 mmol/L (136-145); TC:HDL 2.3 Ratio (Not establshd); TOTAL BILIRUBIN 0.4 mg/dL (<0.1-1.0); TOTAL PROTEIN 7.3 g/dL (6.4-8.2); TRIGLYCERIDE 40 mg/dL (<150); VLDL 8 mg/dL (<40)
[2017-11-26 08:18] LABS: SERUM ASSESSMENT Clear
[2017-11-27 02:06] LABS: GLYCOHEMOGLOBIN (HGB A1C) 7.2 % (4.8-5.6)
== END ==
LOC: M.LAB 07:45
PROVIDERS: Internal Medicine
DX: E10.65 Type 1 diabetes mellitus with hyperglycemia (principal); E89.0 Postprocedural hypothyroidism

== ENCOUNTER 2018-02-01 19:45 | Emergency (ER) | payer MEDICARE, OTHER ==
[~2018-02-01] VITALS: Ht 167.6 cm; Wt 88.9 kg
[2018-02-01] MEDS ORDERED: SYNTHROID150 MCG PO (19:58)
[2018-02-01] MEDS ORDERED: TRAZODONE HCL50 MG PO (19:59)
[2018-02-01 20:32] LABS: ABSOLUTE BASOPHILS 0.1 thou/uL (0.0-0.2); ABSOLUTE EOSINOPHILS 0.1 thou/uL (0.0-0.7); ABSOLUTE LYMPHOCYTES 1.8 thou/uL (0.8-5.3); ABSOLUTE MONOCYTES 0.5 thou/uL (0.0-1.2); ABSOLUTE NEUTROPHILS 4.8 thou/uL (1.6-8.1); BASOPHILS 0.7 %; EOSINOPHILS 1.4 %; HEMATOCRIT 36.8 % (37.0-47.0); HEMOGLOBIN 12.2 gm/dL (12.0-15.0); LYMPHOCYTES 25.1 %; MCH 28.9 pg (26.0-34.0); MCHC 33.1 g/dL (28.0-37.0); MCV 87.4 fL (80.0-100.0); MONOCYTES 7.4 %; MPV 7.3 fl. (7.2-11.1); NUCLEATED RBCS 0 /100WBC; PLATELET COUNT* 248 thou/uL (150-400); POLYS 65.4 %; RBC 4.21 mil/uL (4.20-5.00); WBC 7.4 thou/uL (4.0-11.0)
[2018-02-01 20:40] LABS: ANION GAP 5 mmol/L (7-16); BUN 18 mg/dL (7-18); CALCIUM 9.1 mg/dL (8.5-10.1); CHLORIDE 106 mmol/L (98-107); CO2 29 mmol/L (21-32); CREATININE 0.7 mg/dL (0.6-1.3); GLUCOSE 81 mg/dL (70-99); POTASSIUM 3.6 mmol/L (3.5-5.1); SODIUM 140 mmol/L (136-145)
[2018-02-01 20:47] LABS: ALBUMIN 3.3 g/dL (3.4-5.0); ALKALINE PHOSPHATASE 122 U/L (46-116); SGOT 14 U/L (15-37); SGPT 16 U/L (30-65); TOTAL BILIRUBIN 0.2 mg/dL (<0.1-1.0)
[2018-02-01 21:04] LABS: NT-PRO BRAIN NAT PEPTIDE 119 pg/mL (<300); TOTAL PROTEIN 6.4 g/dL (6.4-8.2); TROPONIN-I LEVEL <0.06 ng/mL (<0.06)
[2018-02-01 22:10] VITALS: BP 115/70
--- NOTE | 2018-02-02 15:39 | EKG ---
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1950 Requested By: Isreal Low Order Number: [id number] MD: Will Beck Measurements Intervals [place] Rate: 77 P: 40 [place]: 162 QRS: 13 QRSD: 93 T: 36 QT: 359 QTc: 407 Interpretive Statements Sinus rhythm Low voltage, precordial leads RSR' in V1 or V2, probably normal variant Compared to ECG 09/20/2017 03:29:46 Low QRS voltage now present RSR' in V1 or V2 now present Myocardial infarct finding no longer present Electronically Signed On 02-02-2018 15:39:09 DIRECTOR MEDICAL SURGICAL by Will Beck [email or web address] <ELECTRONICALLY SIGNED> By: Will Beck MD, FACC 02/02/18 1539 [id number] Will Beck MD, FAC /EPI
== END 2018-02-01 22:11 | disposition home or self-care (01) ==
LOC: M.ERS 19:45
PROVIDERS: Emergency Medicine Emergency Medical Services
DX: R00.2 Palpitations (principal); E42 Marasmic kwashiorkor; I48.91 Unspecified atrial fibrillation; E10.9 Type 1 diabetes mellitus without complications; Z88.1 Allergy status to other antibiotic agents; Z88.2 Allergy status to sulfonamides; Z90.49 Acquired absence of other specified parts of digestive tract

== ENCOUNTER → 2018-02-28 | Outpatient (CLI) | payer MEDICARE, OTHER ==
[~2018-02-28] MED LIST changes: +SYNTHROID150 MCG PO; +TRAZODONE HCL50 MG PO
[2018-02-28 08:13] LABS: ALBUMIN 3.5 g/dL (3.4-5.0); CALCIUM 9.3 mg/dL (8.5-10.1); CREATININE 0.7 mg/dL (0.6-1.3); TOTAL BILIRUBIN 0.4 mg/dL (<0.1-1.0); TOTAL PROTEIN 6.8 g/dL (6.4-8.2)
[2018-02-28 19:07] LABS: GLYCOHEMOGLOBIN (HGB A1C) 6.4 % (4.8-5.6)
== END ==
LOC: M.LAB 07:28
PROVIDERS: Internal Medicine
DX: E10.65 Type 1 diabetes mellitus with hyperglycemia (principal); E89.0 Postprocedural hypothyroidism

== ENCOUNTER → 2018-06-02 | Outpatient (CLI) | payer MEDICARE, OTHER ==
[2018-06-02 08:47] LABS: ALBUMIN 3.6 g/dL (3.4-5.0); ALKALINE PHOSPHATASE 103 U/L (46-116); ANION GAP 9 mmol/L (7-16); BUN 16 mg/dL (7-18); CALCIUM 8.9 mg/dL (8.5-10.1); CHLORIDE 105 mmol/L (98-107); CHOLESTEROL 182 mg/dL (<200); CO2 28 mmol/L (21-32); CREATININE 0.6 mg/dL (0.6-1.3); GLUCOSE 108 mg/dL (70-99); HDL CHOLESTEROL 89 mg/dL (>40); LDL CHOLESTEROL 87 mg/dL (<100); POTASSIUM 3.9 mmol/L (3.5-5.1); SGOT 14 U/L (15-37); SGPT 18 U/L (30-65); SODIUM 142 mmol/L (136-145); TOTAL BILIRUBIN 0.5 mg/dL (<0.1-1.0); TOTAL PROTEIN 7.1 g/dL (6.4-8.2); TRIGLYCERIDE 33 mg/dL (<150); VLDL 7 mg/dL (<40)
[2018-06-02 08:48] LABS: SERUM ASSESSMENT Clear
[2018-06-03 05:08] LABS: GLYCOHEMOGLOBIN (HGB A1C) 6.6 % (4.8-5.6)
== END ==
LOC: M.LAB 07:45
PROVIDERS: Internal Medicine
DX: E10.9 Type 1 diabetes mellitus without complications (principal); E89.0 Postprocedural hypothyroidism

== ENCOUNTER → 2018-09-30 | Outpatient (CLI) | payer MEDICARE, OTHER ==
[2018-09-30 09:09] LABS: ALBUMIN 3.7 g/dL (3.4-5.0); ALKALINE PHOSPHATASE 102 U/L (46-116); ANION GAP 4 mmol/L (7-16); BUN 17 mg/dL (7-18); CALCIUM 9.2 mg/dL (8.5-10.1); CHLORIDE 104 mmol/L (98-107); CHOLESTEROL 182 mg/dL (<200); CO2 33 mmol/L (21-32); CREATININE 0.7 mg/dL (0.6-1.3); GLUCOSE 165 mg/dL (70-99); HDL CHOLESTEROL 85 mg/dL (>40); LDL CHOLESTEROL 90 mg/dL (<100); POTASSIUM 3.9 mmol/L (3.5-5.1); SGOT 14 U/L (15-37); SGPT 19 U/L (30-65); SODIUM 141 mmol/L (136-145); TC:HDL 2.1 Ratio (Not establshd); TOTAL BILIRUBIN 0.5 mg/dL (<0.1-1.0); TOTAL PROTEIN 7.6 g/dL (6.4-8.2); TRIGLYCERIDE 39 mg/dL (<150); VLDL 8 mg/dL (<40)
[2018-09-30 10:13] LABS: SERUM ASSESSMENT Clear
[2018-10-01 02:10] LABS: GLYCOHEMOGLOBIN (HGB A1C) 6.8 % (4.8-5.6)
== END ==
LOC: M.LAB 07:33
PROVIDERS: Internal Medicine
DX: E10.65 Type 1 diabetes mellitus with hyperglycemia (principal); E89.0 Postprocedural hypothyroidism

== ENCOUNTER → 2019-01-23 | Outpatient (CLI) | payer MEDICARE, OTHER ==
[2019-01-23 08:21] LABS: ALBUMIN 3.6 g/dL (3.4-5.0); CALCIUM 9.2 mg/dL (8.5-10.1); CREATININE 0.6 mg/dL (0.6-1.3); POTASSIUM 3.9 mmol/L (3.5-5.1); TOTAL BILIRUBIN 0.3 mg/dL (<0.1-1.0); TOTAL PROTEIN 7.1 g/dL (6.4-8.2)
[2019-01-24 02:06] LABS: GLYCOHEMOGLOBIN (HGB A1C) 6.5 % (4.8-5.6)
== END ==
LOC: M.LAB 07:29
PROVIDERS: Internal Medicine
DX: E10.65 Type 1 diabetes mellitus with hyperglycemia (principal); E89.0 Postprocedural hypothyroidism

== ENCOUNTER 2019-03-17 10:03 | Emergency (ER) | payer MEDICARE, OTHER ==
[~2019-03-17] VITALS: Ht 165.1 cm; Wt 91.6 kg
[2019-03-17 10:31] LABS: ABSOLUTE BASOPHILS 0.1 thou/uL (0.0-0.2); ABSOLUTE EOSINOPHILS 0.1 thou/uL (0.0-0.7); ABSOLUTE LYMPHOCYTES 1.2 thou/uL (0.8-5.3); ABSOLUTE MONOCYTES 0.5 thou/uL (0.0-1.2); ABSOLUTE NEUTROPHILS 4.6 thou/uL (1.6-8.1); EOSINOPHILS 1.8 %; HEMATOCRIT 41.1 % (37.0-47.0); HEMOGLOBIN 13.5 gm/dL (12.0-15.0); LYMPHOCYTES 19.2 %; MCH 27.9 pg (26.0-34.0); MCV 84.4 fL (80.0-100.0); MONOCYTES 7.3 %; MPV 7.9 fl. (7.2-11.1); NUCLEATED RBCS 0 /100WBC; PLATELET COUNT* 259 thou/uL (150-400); POLYS 70.7 %; RBC 4.86 mil/uL (4.20-5.00); RDW-CV 14.4 % (10.5-14.5); WBC 6.5 thou/uL (4.0-11.0)
[2019-03-17 10:38] LABS: CREATININE 0.8 mg/dL (0.6-1.3); POTASSIUM 4.3 mmol/L (3.5-5.1)
[2019-03-17 10:48] LABS: ALBUMIN 3.7 g/dL (3.4-5.0); TOTAL BILIRUBIN 0.4 mg/dL (<0.1-1.0); TOTAL PROTEIN 7.4 g/dL (6.4-8.2)
[2019-03-17 10:55] LABS: APTT 30.6 Seconds (25.0-31.3); INR 1.1; PROTIME 11.5 Seconds (9.20-11.50)
[2019-03-17 12:22] VITALS: BP 130/65
--- NOTE | 2019-03-17 14:39 | EKG ---
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 : 1950 Requested By: Mirna Valera Order Number: [id number] MD: Will Beck Measurements Intervals [place] Rate: 82 P: 41 ID: [id number] QRS: 13 QRSD: 91 T: 60 QT: 350 QTc: 409 Interpretive Statements Sinus rhythm Atrial premature complex Low voltage, precordial leads Compared to ECG 02/01/2018 19:54:05 Atrial premature complex(es) now present Electronically Signed On 03-17-2019 14:38:41 SUPERVISOR CURING ROOM by Will Beck [email or web address] <ELECTRONICALLY SIGNED> By: Will Beck MD, [facility] 03/17/19 1438 1007 [id number] Will Beck MD, FAC /EPI
== END 2019-03-17 12:23 | disposition home or self-care (01) ==
LOC: M.ERS 10:03
PROVIDERS: Personal Emergency Response Attendant
DX: R00.2 Palpitations (principal); I48.91 Unspecified atrial fibrillation; E11.9 Type 2 diabetes mellitus without complications; Z79.4 Long term (current) use of insulin; Z88.1 Allergy status to other antibiotic agents; Z88.2 Allergy status to sulfonamides

== ENCOUNTER 2019-05-31 11:52 | Emergency (ER) | payer MEDICARE, OTHER ==
[~2019-05-31] VITALS: Ht 165.1 cm; Wt 93.9 kg
[2019-05-31] MEDS ORDERED: BUPROPION XL300 MG PO (12:22)
[2019-05-31] MEDS ORDERED: FLECAINIDE ACET50 M2 PO (12:22)
[2019-05-31 14:25] VITALS: BP 144/84
== END 2019-05-31 14:27 | disposition home or self-care (01) ==
LOC: M.ERS 11:52
DX: M94.0 Chondrocostal junction syndrome [Tietze] (principal); I48.91 Unspecified atrial fibrillation; E10.9 Type 1 diabetes mellitus without complications; Z88.1 Allergy status to other antibiotic agents; Z88.2 Allergy status to sulfonamides

== ENCOUNTER 2019-10-26 17:16 | Emergency (ER) | payer MEDICARE, OTHER ==
[~2019-10-26] VITALS: Ht 167.6 cm; Wt 94.3 kg
[~2019-10-26 17:16] MED LIST changes: +BUPROPION XL300 MG PO; +FLECAINIDE ACET50 M2 PO
[2019-10-26 18:13] LABS: URINE BLOOD TRACE (Negative); URINE CLARITY CLEAR; URINE COLOR YELLOW; URINE GLUCOSE-RANDOM NEGATIVE (Negative); URINE KETONES TRACE (Negative); URINE LEUKOCYTES-REFLEX NEGATIVE (Negative); URINE NITRITE-REFLEX NEGATIVE (Negative); URINE PROTEIN NEGATIVE (Negative); URINE SPECIFIC GRAVITY >= 1.030 (1.005-1.030); URINE UROBILINOGEN 0.2 E.U./dl (0.2-1.0)
[2019-10-26 18:15] LABS: ICTOTEST (BILI CONFIRMATORY) Negative (Negative); URINE BILIRUBIN 1+ (Negative)
[2019-10-26 18:39] LABS: ABSOLUTE EOSINOPHILS 0.1 thou/uL (0.0-0.7); ABSOLUTE LYMPHOCYTES 1.3 thou/uL (0.8-5.3); ABSOLUTE MONOCYTES 0.4 thou/uL (0.0-1.2); ABSOLUTE NEUTROPHILS 3.8 thou/uL (1.6-8.1); BASOPHILS 0.8 %; EOSINOPHILS 1.8 %; HEMATOCRIT 37.6 % (37.0-47.0); HEMOGLOBIN 12.5 gm/dL (12.0-15.0); LYMPHOCYTES 22.2 %; MCH 27.7 pg (26.0-34.0); MCHC 33.1 g/dL (28.0-37.0); MCV 83.7 fL (80.0-100.0); MONOCYTES 7.8 %; MPV 7.8 fl. (7.2-11.1); NUCLEATED RBCS 0 /100WBC; PLATELET COUNT* 241 thou/uL (150-400); POLYS 67.4 %; RBC 4.49 mil/uL (4.20-5.00); WBC 5.7 thou/uL (4.0-11.0)
[2019-10-26 18:45] LABS: CREATININE 0.8 mg/dL (0.6-1.3); POTASSIUM 4.1 mmol/L (3.5-5.1)
[2019-10-26 18:46] LABS: APTT 26.6 Seconds (25.0-31.3); INR 1.1; PROTIME 10.9 Seconds (9.20-11.50)
[2019-10-26 18:57] LABS: ALBUMIN 3.6 g/dL (3.4-5.0); TOTAL BILIRUBIN 0.2 mg/dL (<0.1-1.0); TOTAL PROTEIN 6.9 g/dL (6.4-8.2)
[2019-10-26] MEDS ORDERED: ONDANSETRON HCL4 M2 PO (20:41)
[2019-10-26] MEDS ORDERED: BENTYL 20 MG TA20 M1 PO (20:41)
[2019-10-26 21:46] VITALS: BP 132/68
--- NOTE | 2019-10-27 11:32 | EKG ---
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: : 1950 Requested By: Deysi Felipe Order Number: [id number] MD: Will Beck Measurements Intervals [place] Rate: 72 P: 31 [place]: 195 QRS: 20 QRSD: 115 T: 35 QT: 384 QTc: 421 Interpretive Statements Sinus rhythm Low voltage, precordial leads Baseline wander in lead(s) II,III,aVF,V1 Compared to ECG 03/17/2019 10:07:56 Atrial premature complex(es) no longer present Electronically Signed On 10-27-2019 11:32:15 CDT by Will Beck [email or web address] <ELECTRONICALLY SIGNED> By: Will Beck MD, FACC 10/27/19 1132 1828 1828 Will Beck MD, FAC /EPI
== END 2019-10-26 21:43 | disposition home or self-care (01) ==
LOC: M.ERS 17:16
PROVIDERS: Nurse Practitioner Family
DX: R10.13 Epigastric pain (principal); M54.5 Low back pain; Z90.49 Acquired absence of other specified parts of digestive tract; I48.91 Unspecified atrial fibrillation; E10.9 Type 1 diabetes mellitus without complications; Z88.1 Allergy status to other antibiotic agents; Z88.2 Allergy status to sulfonamides

== ENCOUNTER → 2020-03-17 | Outpatient (CLI) | payer MEDICARE, OTHER ==
[~2020-03-17] MED LIST changes: +BENTYL 20 MG TA20 M1 PO
[2020-03-17 08:40] LABS: ALBUMIN 3.7 g/dL (3.4-5.0); ALKALINE PHOSPHATASE 91 U/L (46-116); ANION GAP 8 mmol/L (7-16); BUN 20 mg/dL (7-18); CHLORIDE 104 mmol/L (98-107); CHOLESTEROL 182 mg/dL (<200); CO2 28 mmol/L (21-32); CREATININE 0.7 mg/dL (0.6-1.3); GLUCOSE 216 mg/dL (70-99); HDL CHOLESTEROL 92 mg/dL (>40); LDL CHOLESTEROL 86 mg/dL (<100); POTASSIUM 4.1 mmol/L (3.5-5.1); SGOT 11 U/L (15-37); SGPT 20 U/L (30-65); SODIUM 140 mmol/L (136-145); TOTAL BILIRUBIN 0.4 mg/dL (<0.1-1.0); TOTAL PROTEIN 6.8 g/dL (6.4-8.2); TRIGLYCERIDE 23 mg/dL (<150); VLDL 5 mg/dL (<40)
[2020-03-17 08:43] LABS: SERUM ASSESSMENT Clear
== END ==
LOC: M.LAB 07:37
PROVIDERS: ATTEND Internal Medicine
DX: E10.65 Type 1 diabetes mellitus with hyperglycemia (principal); E89.0 Postprocedural hypothyroidism

== ENCOUNTER → 2021-04-24 | Outpatient (CLI) | payer MEDICARE, OTHER | LOC: M.MRI 07:00 | PROVIDERS: ATTEND Family Medicine | DX: M19.072 Primary osteoarthritis, left ankle and foot (principal); M25.872 Other specified joint disorders, left ankle and foot; R93.89 Abnormal findings on diagnostic imaging of other specified body structures ==